=== PATIENT | male | born 1940 | race Caucasian/White ===

== ENCOUNTER 2017-03-15 11:42 | Day surgery (SDC) | payer MEDICARE, BC ==
[2017-03-15] MEDS ORDERED: Lactated Ringers 1,000 ML IV SCH (12:00)
[2017-03-15] MEDS ORDERED: Gatifloxacin 0.5% Ophth Soln 2.5 ML Bot EYERT SCH (12:00)
[2017-03-15] MEDS ORDERED: Sodium Chloride 0.9% 5 ML Syringe FLUSH PRN (12:00)
[2017-03-15] MEDS: Phenylephrine 10% Ophth Soln 5 ML Bot EYERT SCH ×3 (12:03→12:35)
[2017-03-15] MEDS: Cyclopentolate 1% Opth Soln 2 ML Bottle EYERT SCH ×3 (12:13→12:45)
[2017-03-15] MEDS ORDERED: Water For Irrigation,Sterile 1,500 ML Container ONE (13:51)
[2017-03-15] MEDS ORDERED: Balanced Salt Solution Ophth Irrig 15 ML Bottle EYERT ONE (13:54)
[2017-03-15] MEDS ORDERED: EPINEPHrine 1 MG/ML SDV ONE (13:54)
[2017-03-15] MEDS ORDERED: Balanced Salt Solution Plus Ophth Irrig 500 ML Bottle IOCULAR ONE (13:54)
[2017-03-15] MEDS ORDERED: Carbachol 0.01% Intraocular 1.5 ML Vial EYERT ONE (13:54)
[2017-03-15] MEDS ORDERED: Dexamethasone/Neomycin/Polymyxin B Ophth Oint 3.5 GM Tube EYERT ONE (13:55)
[2017-03-15] MEDS ORDERED: Hyaluronate Sodium 1% 0.85 ML Syringe IOCULAR ONE (13:55)
[2017-03-15] MEDS ORDERED: Lidocaine 1% 10 ML MDV INFILT ONE (13:55)
[2017-03-15] MEDS ORDERED: Lidocaine 2% with EPINEPHrine 1:100,000 20 ML MDV INJECT ONE (13:55)
[2017-03-15] MEDS ORDERED: Tetracaine HCl/PF 0.5% 4 ML Bottle EYEBOTH ONE (13:56)
--- NOTE | 2017-03-16 08:29 | OR ---
DATE OF SURGERY: 03/15/2017 SURGEON: Frank Guzman MD PREOPERATIVE DIAGNOSIS: Cataract, right eye. POSTOPERATIVE DIAGNOSIS: Cataract, right eye. OPERATION PERFORMED: Phacoemulsification with posterior chamber lens insertion, right eye. HISTORY: The patient has a history of increasing blurred vision as he tries to read. His vision is 20/100-1 for the right eye. 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 FINDINGS: The patient was taken to the operating room where appropriate anesthesia, sedation and monitoring were provided. A retrobulbar block was given on the right side. The eye was massaged and was found to be appropriately soft. The eye and eyelids were then prepped and draped in the usual sterile manner. A lid speculum was placed. A micro sharp blade was used to enter the anterior chamber inside the limbus superior-temporally. Xylocaine was irrigated into the eye at this site. Healon was irrigated into the eye through this site. Then using a 2.85 mm corneal blade an entry was made into the anterior chamber just inside the limbus temporally. Healon was again irrigated into the eye. Then using a cystitome, the anterior capsulorrhexis was created. The lens nucleus was hydrodissected using a 27 gauge cannula and balanced salt solution. The phacoemulsification unit was introduced through the temporal site and the Oli spatula through the superior temporal site. In so doing, the lens nucleus was phacoemulsified. The cortical fragments of the lens were removed using the irrigation aspiration unit. The posterior capsule was polished. Healon was irrigated into the eye. The posterior chamber lens was inserted and rotated into position inside the capsular bag. The Healon was irrigated out of the eye. Miostat was irrigated into the eye and the pupil rounded nicely. A single interrupted 10-0 Nylon suture was placed through the temporal corneal incision site. Balanced salt solution was irrigated into the eye. The wound was tested and found to be tight. Maxitrol ointment was placed into the patient's right eye. The eyelids were closed and an eye patch and sorenson shield were placed. The patient left the operating room in good condition. /[id number]/MODL
== END 2017-03-15 14:28 | disposition home or self-care (01) ==
LOC: KA.SDS 11:42
PROVIDERS: ATTEND Ophthalmology
DX: H25.811 Combined forms of age-related cataract, right eye (principal); I10 Essential (primary) hypertension; Z79.82 Long term (current) use of aspirin; K21.9 Gastro-esophageal reflux disease without esophagitis; Z79.899 Other long term (current) drug therapy
CPT/HCPCS: 66984; A9270; C1780; J0171; J7120; 00142

== ENCOUNTER 2017-05-24 11:11 | Day surgery (SDC) | payer MEDICARE, BC ==
[~2017-05-24 11:11] MED LIST: Cyclopentolate 1% Opth Soln 2 ML Bottle EYELF SCH; Gatifloxacin 0.5% Ophth Soln 2.5 ML Bot EYELF SCH; Lactated Ringers 1,000 ML IV SCH; Phenylephrine 10% Ophth Soln 5 ML Bot EYELF SCH; Sodium Chloride 0.9% 5 ML Syringe FLUSH PRN
[2017-05-24] MEDS: Phenylephrine 10% Ophth Soln 5 ML Bot EYELF SCH ×3 (11:30→12:01)
[2017-05-24] MEDS: Cyclopentolate 1% Opth Soln 2 ML Bottle EYELF SCH ×3 (11:40→12:15)
[2017-05-24] MEDS ORDERED: Lactated Ringers 1,000 ML IV SCH (12:00)
[2017-05-24] MEDS ORDERED: Gatifloxacin 0.5% Ophth Soln 2.5 ML Bot EYELF SCH (12:00)
[2017-05-24] MEDS ORDERED: Sodium Chloride 0.9% 5 ML Syringe FLUSH PRN (12:00)
[2017-05-24] MEDS ORDERED: Phenylephrine 10% Ophth Soln 5 ML Bot EYELF SCH (12:30)
[2017-05-24] MEDS ORDERED: Cyclopentolate 1% Opth Soln 2 ML Bottle EYELF SCH (12:30)
[2017-05-24] MEDS ORDERED: Water For Irrigation,Sterile 1,500 ML Container IRR ONE (13:00)
[2017-05-24] MEDS ORDERED: Carbachol 0.01% Intraocular 1.5 ML Vial EYELF ONE (13:01)
[2017-05-24] MEDS ORDERED: EPINEPHrine 1 MG/ML SDV ONE (13:01)
[2017-05-24] MEDS ORDERED: Balanced Salt Solution Plus Ophth Irrig 500 ML Bottle IOCULAR ONE (13:01)
[2017-05-24] MEDS ORDERED: Balanced Salt Solution Ophth Irrig 15 ML Bottle EYELF ONE (13:01)
[2017-05-24] MEDS ORDERED: Dexamethasone/Neomycin/Polymyxin B Ophth Oint 3.5 GM Tube EYELF ONE (13:02)
[2017-05-24] MEDS ORDERED: Lidocaine 2% with EPINEPHrine 1:100,000 20 ML MDV INJECT ONE (13:02)
[2017-05-24] MEDS ORDERED: Lidocaine 1% 10 ML MDV INJECT ONE (13:02)
[2017-05-24] MEDS ORDERED: Hyaluronate Sodium 1% 0.85 ML Syringe IOCULAR ONE (13:03)
[2017-05-24] MEDS ORDERED: Tetracaine HCl/PF 0.5% 4 ML Bottle EYEBOTH ONE (13:03)
--- NOTE | 2017-05-26 09:16 | OR ---
DATE OF SURGERY: 05/24/2017 SURGEON: Frank Guzman MD PREOPERATIVE DIAGNOSIS: Cataract, left eye. POSTOPERATIVE DIAGNOSIS: Cataract, left eye. OPERATION PERFORMED: Phacoemulsification with posterior chamber lens insertion, left eye. HISTORY: The patient presents with an increasing amount of difficulty seeing to read. His vision for the left eye is 20/80. The lens of the left eye is 2 to 3+ nuclear sclerosis, 2 to 3+ cortical change, and there is 3+ vacuoles present. 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 FINDINGS: The patient was taken to the operating room where appropriate anesthesia, sedation and monitoring were provided. A retrobulbar block was given on the left side. The eye was massaged and was found to be appropriately soft. The eye and eyelids were then prepped and draped in the usual sterile manner. A lid speculum was placed. A micro sharp blade was used to enter the anterior chamber inside the limbus inferior-temporally. Xylocaine was irrigated into the eye at this site. Healon was irrigated into the eye through this site. Then using a 2.85 mm corneal blade an entry was made into the anterior chamber just inside the limbus temporally. Healon was again irrigated into the eye. Then using a cystitome, the anterior capsulorrhexis was created. The lens nucleus was hydrodissected using a 27 gauge cannula and balanced salt solution. The phacoemulsification unit was introduced through the temporal site and the Oli spatula through the inferior temporal site. In so doing, the lens nucleus was phacoemulsified. The cortical fragments of the lens were removed using the irrigation aspiration unit. The posterior capsule was polished. Healon was irrigated into the eye. The posterior chamber lens was inserted and rotated into position inside the capsular bag. The Healon was irrigated out of the eye. Miostat was irrigated into the eye and the pupil rounded nicely. A single interrupted 10-0 Nylon suture was placed through the temporal corneal incision site. Balanced salt solution was irrigated into the eye. The wound was tested and found to be tight. Maxitrol ointment was placed into the patient's left eye. The eyelids were closed and an eye patch and sorenson shield were placed. The patient left the operating room in good condition. /[id number]/MODL
== END 2017-05-24 13:52 | disposition home or self-care (01) ==
LOC: KA.SDS 11:11
PROVIDERS: ATTEND Ophthalmology
DX: H25.812 Combined forms of age-related cataract, left eye (principal); I10 Essential (primary) hypertension; K21.9 Gastro-esophageal reflux disease without esophagitis; E87.6 Hypokalemia; Z79.82 Long term (current) use of aspirin; Z79.899 Other long term (current) drug therapy
CPT/HCPCS: A9270-GY; J0171; J7120

== ENCOUNTER 2020-12-21 19:38 | Emergency (ER) | payer MEDICARE, BC ==
[2020-12-21 20:31] LABS: ANION GAP 15.2 mmol/L (5-15); CHLORIDE,CL 105 mmol/L (98-107); SODIUM,NA 142 mmol/L (136-145)
[2020-12-21] MEDS: Amoxicillin/Clavulanate K 875-125 MG Tab PO ONE (20:35)
--- NOTE | 2020-12-21 20:38 | EDM.PDOC ---
ED HPI GENERAL MEDICAL PROBLEM - General Chief Complaint: General Stated Complaint: sinus, burning eyes Time Seen by Provider: 12/21/20 20:11 Source of Information: Reports: Patient, Family History Limitations: Reports: No Limitations - History of Present Illness INITIAL COMMENTS - FREE TEXT/NARRATIVE: Patient presents with sinus pressure in forehead and face as well as burning in his eyes. He says he gets this fairly often and seems related to seasonal allergies. In the Spring he usually has to take an antibiotic for a sinus infection. He has taken some Benadryl which has helped a little. Denies fever or cough. Bilateral Forehead Pain Score (Numeric/FACES): 5 - Related Data Allergies Allergy/AdvReac Type Severity Reaction Status Date / Time No Known Drug Allergies Allergy NKDA Verified 05/24/17 11:23 Home Meds: Home Meds Aspirin [Halfprin] 81 mg PO BRK 02/09/16 [History] Atenolol/Chlorthalidone [Atenolol-Chlorthalidone 100-25] 1 each PO DAILY 02/09/16 [History] lisinopriL [Lisinopril] 10 mg PO DAILY 12/21/20 [History] Past Medical History HEENT History: Reports: Cataract Cardiovascular History: Reports: Hypertension Gastrointestinal History: Reports: GERD Musculoskeletal History: Reports: Gout - Infectious Disease History Infectious Disease History: Reports: Chicken Pox, Measles, Mumps - Past Surgical History HEENT Surgical History: Reports: Cataract Surgery, Tonsillectomy Musculoskeletal Surgical History: Reports: Shoulder Surgery Social & Family History - Family History Family Medical History: No Pertinent Family History - Caffeine Use Caffeine Use: Reports: Coffee ED ROS GENERAL - Review of Systems Review Of Systems: See Below Constitutional: Denies: Fever, Chills, Malaise, Weakness, Decreased Appetite HEENT: Denies: Ear Pain, Throat Pain, Vision Change Respiratory: Denies: Shortness of Breath, Cough Cardiovascular: Denies: Chest Pain, Lightheadedness, Syncope GI/Abdominal: Denies: Abdominal Pain, Diarrhea, Vomiting : Denies: Flank Pain Musculoskeletal: Denies: Neck Pain, Shoulder Pain, Back Pain Skin: Denies: Cyanosis, Jaundice, Mottled, Pallor, Diaphoresis Neurological: Denies: Confusion, Dizziness, Headache, Seizure, Syncope, Trouble Speaking, Difficulty Walking Psychiatric: Denies: Agitation, Anxiety, Confusion ED EXAM, GENERAL - Physical Exam Exam: See Below Exam Limited By: No Limitations General Appearance: Alert, WD/WN, No Apparent Distress Eye Exam: Bilateral Eye: EOMI, Normal Inspection, PERRL Ears: Normal External Exam, Hearing Grossly Normal Nose: Normal Inspection, Normal Mucosa, No Blood. No: Nasal Tenderness Throat/Mouth: Normal Inspection, Normal Lips, Normal Voice, No Airway Compromise Head: Atraumatic, Normocephalic, Sinus Tenderness (left maxillary). No: Facial Swelling Neck: Normal Inspection, Full Range of Motion Respiratory/Chest: No Respiratory Distress, Lungs Clear, Normal Breath Sounds, No Accessory Muscle Use Cardiovascular: No Murmur, Bradycardia (regular) GI/Abdominal: Normal Bowel Sounds, Soft, Non-Tender, No Organomegaly, No Distention, No Abnormal Bruit, No Mass Back Exam: Normal Inspection, Full Range of Motion. No: CVA Tenderness (L), CVA Tenderness (R) Extremities: Normal Inspection, Normal Range of Motion Neurological: Alert, Oriented, Normal Cognition, No Motor/Sensory Deficits Psychiatric: Normal Affect, Normal Mood Skin Exam: Warm, Dry, Intact, Normal Color, No Rash Course - Vital Signs Last Recorded V/S: Last Vital Signs Temp 97.7 F 12/21/20 20:04 Pulse 55 L 12/21/20 20:04 Resp 18 12/21/20 20:04 BP 202/130 H 12/21/20 20:04 Pulse Ox 95 12/21/20 20:04 - Orders/Labs/Meds Orders: Active Orders 24 hr Category Date Time Status EKG Documentation Completion [RC] ASDIRECTED Care 12/21/20 20:03 Active EKG 12 Lead [EK] Stat Ther 12/21/20 20:03 Ordered Labs: Laboratory Tests 12/21/20 12/21/20 Range/Units 19:55 19:55 WBC 10.15 H (5.00-10.00) 10^3/uL RBC 5.30 (4.50-6.00) 10^6/uL Hgb 15.7 (13.0-17.0) g/dL Hct 47.6 (40.0-52.0) % MCV 89.8 (82.0-92.0) fL MCH 29.6 (27.0-31.0) pg MCHC 33.0 (32.0-36.0) g/dL RDW 13.7 (11.5-14.5) % Plt Count 268 (150-400) 10^3/uL MPV 9.6 (7.4-10.4) fL Immature Gran % (Auto) 0.1 (0.0-5.0) % Neut % (Auto) 39.2 L (50.0-70.0) % Lymph % (Auto) 50.0 H (20.0-40.0) % [facility] % (Auto) 7.5 (2.0-8.0) % Eos % (Auto) 2.9 (1.0-3.0) % Baso % (Auto) 0.3 (0.0-1.0) % Neut # (Auto) 3.99 (2.50-7.00) 10^3/uL Lymph # (Auto) 5.07 H (1.00-4.00) 10^3/uL [facility] # (Auto) 0.76 (0.10-0.80) 10^3/uL Eos # (Auto) 0.29 (0.10-0.30) 10^3/uL Baso # (Auto) 0.03 (0.00-0.10) 10^3/uL Immature Gran # (Auto) 0.01 (0.00-0.50) 10^3/uL Sodium 142 (136-145) mmol/L Potassium 3.1 L (3.5-5.1) mmol/L Chloride 105 (98-107) mmol/L Carbon Dioxide 24.9 (21.0-32.0) mmol/L Anion Gap 15.2 H (5-15) mmol/L BUN 25 H (7-18) mg/dL Creatinine 1.51 H (0.51-1.17) mg/dL Est Cr Clr Drug Dosing TNP Estimated GFR (MDRD) 45 mL/min Glucose 160 H (70-140) mg/dL Calcium 8.4 L (8.7-10.3) mg/dL Meds: Medications Discontinued Medications Generic Name Dose Route Start Last Admin Trade Name Freq PRN Reason Stop Dose Admin Amoxicillin/Clavulanate Potassium 1 tab 12/21/20 20:30 Amoxicillin/Clavulanate K 875-125 Mg Tab PO 12/21/20 20:31 ONETIME ONE - Re-Assessments/Exams Free Text/Narrative Re-Assessment/Exam: 12/21/20 20:43 Discussed findings and treatment plan with patient. He was given the first dose of Augmentin 875 mg in ER. Rx for same bid x 10 days. BP was quite elevated on arrival but came down significantly before discharge. Discharged to home in stable condition. 12/21/20 20:48 Before he left I saw the BNP come in so I discussed with him that his glucose and kidney levels were a little higher than normal values. I don't have previous labs here to compare with. He isn't aware of any diabetes or kidney disease. I advised him to recheck and discuss this with his PCP also. Departure - Departure Time of Disposition: 20:32 Disposition: Home, Self-Care 01 Condition: Good Clinical Impression: Acute sinus infection Qualifiers: Sinusitis location: maxillary Recurrence: recurrent Qualified Code(s): J01.01 - Acute recurrent maxillary sinusitis - Discharge Information Instructions: Sinusitis, Adult, [id number] Referrals: Tasia Guerrero MD [Primary Care Provider] - Forms: ED Department Discharge Additional Instructions: Drink 8 cups of water daily. Take the Augmentin as directed. Robitussin and Sudafed can also beneficial in clearing sinus infections. Take as directed. Continue your Benadryl as needed. Follow up with your PCP in 10 days for recheck. If worsening, recheck in clinic or ER as needed. Sepsis Event Note (ED) - Focused Exam Vital Signs: Vital Signs Temp Pulse Resp BP Pulse Ox 12/21/20 20:04 97.7 F 55 L 18 202/130 H 95 - My Orders Last 24 Hours: My Active Orders 12/21/20 20:03 EKG Documentation Completion [RC] ASDIRECTED EKG 12 Lead [EK] Stat - Assessment/Plan Last 24 Hours: My Active Orders 12/21/20 20:03 EKG Documentation Completion [RC] ASDIRECTED EKG 12 Lead [EK] Stat
== END 2020-12-21 20:40 | disposition home or self-care (01) ==
LOC: KA.ED 19:38
DX: J01.01 Acute recurrent maxillary sinusitis (principal); I10 Essential (primary) hypertension; M10.9 Gout, unspecified; Z79.82 Long term (current) use of aspirin; Z79.899 Other long term (current) drug therapy
CPT/HCPCS: 36415; 80048; 85025; 99283; A9270